=== PATIENT | female | born 1985 | race American Indian/Alaskan Native ===

== ENCOUNTER 2018-11-27 08:24 | Emergency (ER) | payer OTHER ==
[2018-11-27 08:30] VITALS: BP 135/78
--- NOTE | 2018-11-27 08:58 | Emergency Department Report ---
ED General Adult HPI - General Chief complaint: Pain General Stated complaint: ALLERGIES Time Seen by Provider: 11/27/18 08:46 Source: patient Mode of arrival: Ambulatory Limitations: No Limitations - History of Present Illness Initial comments: Patient is 33 years old female with history of schizophrenia. The patient presented to the ER stated that for the last few weeks she has been having pressure in her head associated with sneezing and itching. Patient stated that she is already taking Flonase for allergic rhinitis and she is asking if she can get more medication for that. Patient denied any fever, chills, cough, nausea or vomiting. No chest pain or shortness of breath. Patient denied any auditory or visual hallucination. No suicidal or homicidal ideation. Severity scale (0 -10): 0 - Related Data Allergies Allergy/AdvReac Type Severity Reaction Status Date / Time No Known Allergies Allergy Verified 11/27/18 08:25 ED Review of Systems ROS: Stated complaint: ALLERGIES Other details as noted in HPI Comment: All other systems reviewed and negative Constitutional: denies: chills, fever ENT: congestion Respiratory: denies: cough, orthopnea, shortness of breath Cardiovascular: denies: chest pain, palpitations Gastrointestinal: denies: abdominal pain, nausea Neurological: denies: headache, weakness Psychiatric: denies: depression, auditory hallucinations, visual hallucinations, homicidal thoughts, suicidal thoughts ED Past Medical Hx - Past Medical History Previous Medical History?: Yes Hx Psychiatric Treatment: Yes (schizophrenia) - Surgical History Past Surgical History?: No - Social History Smoking Status: Never Smoker Substance Use Type: None ED Physical Exam - General Limitations: No Limitations General appearance: alert, in no apparent distress - Head Head exam: Present: atraumatic, normocephalic, normal inspection - Eye Eye exam: Present: normal appearance - ENT ENT exam: Present: normal exam, normal orophraynx, mucous membranes moist - Neck Neck exam: Present: normal inspection, full ROM. Absent: tenderness - Respiratory Respiratory exam: Present: normal lung sounds bilaterally - Cardiovascular Cardiovascular Exam: Present: regular rate, normal rhythm, normal heart sounds - GI/Abdominal GI/Abdominal exam: Present: soft, normal bowel sounds. Absent: distended, tenderness, guarding, rebound - Extremities Exam Extremities exam: Present: normal inspection, full ROM, normal capillary refill - Neurological Exam Neurological exam: Present: alert, oriented X3, CN II-XII intact, normal gait - Psychiatric Psychiatric exam: Absent: depressed, manic, homicidal ideation, suicidal ideation - Skin Skin exam: Present: warm, intact, normal color ED Course Vital Signs 11/27/18 08:28 Temperature 98.9 F Pulse Rate 70 Respiratory 16 Rate Blood Pressure 135/78 O2 Sat by Pulse 100 Oximetry Critical care attestation.: If time is entered above; I have spent that time in minutes in the direct care of this critically ill patient, excluding procedure time. ED Disposition Clinical Impression: Allergic rhinitis Disposition: DC-01 TO HOME OR SELFCARE Is pt being admited?: No Condition: Stable Instructions: Allergic Rhinitis (ED) Referrals: [facility] [Provider Group] - 3-5 Days
== END 2018-11-27 09:24 | disposition home or self-care (01) ==
LOC: ED 09:09
DX: J30.9 Allergic rhinitis, unspecified (principal)
CPT/HCPCS: 99282